=== PATIENT | female | born 1980 | race Caucasian/White ===

== ENCOUNTER 2019-08-01 17:10 | Emergency (ER) | payer OTHER ==
[~2019-08-01] VITALS: Ht 180.3 cm; Wt 116.0 kg
[2019-08-01] MEDS ORDERED: docusate sodium 100mg/10ml UD cup PO STA (18:32)
[2019-08-01] MEDS ORDERED: polyethylene glycol 3350 17gm powd pack PO STA (18:32)
[2019-08-01] MEDS ORDERED: NA P133E4 RC (18:52)
[2019-08-01] MEDS ORDERED: POLY17PO10 PO (19:24)
--- NOTE | 2019-08-01 20:00 | NUR ---
joe monroy in room and discussed results of CED
[2019-08-01 20:17] VITALS: BP 122/83
== END 2019-08-01 20:05 | disposition home or self-care (01) ==
LOC: ER 17:11
DX: K59.00 Constipation, unspecified (principal); Z88.0 Allergy status to penicillin; Z79.899 Other long term (current) drug therapy
CPT/HCPCS: 74018; 99284

== ENCOUNTER 2019-10-29 08:38 | Outpatient (CLI) | payer OTHER ==
[2019-10-29 09:34] LABS: BASOPHILS % (AUTO) 0.7 % (0-1); EOSINOPHILS # (AUTO) 0.2 X10'3 (0-0.9); EOSINOPHILS % (AUTO) 3.3 % (0-6); HEMATOCRIT 41.4 % (35.0-45.0); LYMPHOCYTES # (AUTO) 2.4 X10'3 (1.1-4.8); LYMPHOCYTES % (AUTO) 43.4 % (21-51); MEAN CORPUSCULAR HEMOGLOBIN 26.4 PG (27.0-31.0); MEAN CORPUSCULAR HGB CONC 33.8 g/dL (33.0-36.5); MEAN CORPUSCULAR VOLUME 77.9 FL (78-98); MEAN PLATELET VOLUME 7.4 FL (7.4-10.4); MONOCYTES # (AUTO) 0.3 X10'3 (0-0.9); MONOCYTES % (AUTO) 5.9 % (2-12); NEUTROPHILS # (AUTO) 2.6 X10'3 (1.8-7.7); NEUTROPHILS % (AUTO) 46.7 % (42-75); PLATELET COUNT 237 X10'3 (140-440); RED BLOOD COUNT 5.31 X10'6 (4.20-5.60); RED CELL DISTRIBUTION WIDTH 14.4 % (11.5-14.5); WHITE BLOOD COUNT 5.5 X10'3 (4.5-11.0)
[2019-10-29 10:01] LABS: ALANINE AMINOTRANSFERASE 18 U/L (12-78); ALBUMIN 3.7 G/DL (3.4-5.0); ALBUMIN/GLOBULIN RATIO 1.1 (1.1-1.5); ALKALINE PHOSPHATASE 56 IU/L (46-116); ANION GAP 7 (8-16); ASPARTATE AMINO TRANSFERASE 19 U/L (10-37); BILIRUBIN,TOTAL 0.4 MG/DL (0.1-1.0); BLOOD UREA NITROGEN 14 MG/DL (7-18); BUN/CREATININE RATIO 17.5 (6.6-38.0); CALCIUM 8.7 MG/DL (8.5-10.1); CHLORIDE 104 MMOL/L (99-107); CHOL/HDL RATIO 3.4 (0.00-4.99); CHOLESTEROL 162 MG/DL (0-200); GLUCOSE 92 MG/DL (70-104); HDL CHOLESTEROL 47 MG/DL (35-60); LDL CHOLESTEROL 85 MG/DL (50-100); POTASSIUM 3.9 MMOL/L (3.5-5.1); SODIUM 139 MMOL/L (135-145); TOTAL CARBON DIOXIDE 28.2 MMOL/L (24-32); TRIGLYCERIDES 143 MG/DL (20-135); eGFR 79 ML/MIN
== END 2019-10-29 23:59 | disposition home or self-care (01) ==
LOC: RAD 08:38
PROVIDERS: ATTEND Obstetrics & Gynecology
DX: N93.9 Abnormal uterine and vaginal bleeding, unspecified (principal)
CPT/HCPCS: 36415; 76830; 76856; 80053; 80061; 82306; 84439; 84443; 85025

== ENCOUNTER 2020-01-15 07:18 | Day surgery (SDC) | payer OTHER ==
[2020-01-15] VITALS (8 sets, daily range): BP systolic 116–138; BP diastolic 48–86
[~2020-01-15] VITALS: Ht 180.3 cm; Wt 119.3 kg
[~2020-01-15 07:18] MED LIST: GENTAMICIN IV ONE; NORE-223 PO; NORMAL SALINE IV ONE; clindamycin-Cleocin 900mg/D5W 50 ML IV ONE; famotidine 20mg tablet PO ONE; ringers solution, lacted 1,000 ML IV SCH
[2020-01-15 08:01] LABS: CLARITY,URINE CLEAR (Clear); COLOR,URINE YELLOW (Yellow); GLUCOSE, URINE NEGATIVE (Neg); KETONES,URINE NEGATIVE (Neg); LEUKOCYTE ESTERASE ,URINE TRACE (Neg); NITRITES, URINE NEGATIVE (Neg); OCCULT BLOOD,URINE LARGE (Neg); PROTEIN,URINE NEGATIVE (Neg); UROBILINOGEN,URINE 0.2 E.U/dL (0.2-1.0)
[2020-01-15 08:02] LABS: UA COLLECTION TYPE NON-SPECIFIED
[2020-01-15 08:04] LABS: BASOPHILS % (AUTO) 0.6 % (0-1); EOSINOPHILS # (AUTO) 0.2 X10'3 (0-0.9); EOSINOPHILS % (AUTO) 3.5 % (0-6); LYMPHOCYTES # (AUTO) 2.1 X10'3 (1.1-4.8); LYMPHOCYTES % (AUTO) 43.6 % (21-51); MEAN CORPUSCULAR HEMOGLOBIN 26.2 PG (27.0-31.0); MEAN CORPUSCULAR HGB CONC 33.1 g/dL (33.0-36.5); MEAN CORPUSCULAR VOLUME 78.9 FL (78-98); MEAN PLATELET VOLUME 7.2 FL (7.4-10.4); MONOCYTES # (AUTO) 0.3 X10'3 (0-0.9); MONOCYTES % (AUTO) 5.4 % (2-12); NEUTROPHILS # (AUTO) 2.2 X10'3 (1.8-7.7); NEUTROPHILS % (AUTO) 46.9 % (42-75); PRE OP HEMATOCRIT 42.6 % (35.0-45.0); PRE OP HEMOGLOBIN 14.1 g/dL (12.0-16.0); PRE OP PLATELET COUNT 227 X10'3 (140-440); RED BLOOD COUNT 5.39 X10'6 (4.20-5.60); RED CELL DISTRIBUTION WIDTH 14.5 % (11.5-14.5)
[2020-01-15] MEDS ORDERED: morphine 4 MG/ML inj SYRINge IV PRN (08:05)
[2020-01-15] MEDS ORDERED: fentaNYL/PF 50MCG/1 ML 2ML syringe IV PRN ×2 (08:05)
[2020-01-15] MEDS ORDERED: morphine 2 MG/ML inj. syringe IV PRN (08:05)
[2020-01-15] MEDS ORDERED: hydrALAZINE 20mg/ml inj. IV PRN (08:05)
[2020-01-15] MEDS ORDERED: labetalol 20mg/4ml (5mg/ml) syringe IV PRN (08:05)
[2020-01-15] MEDS ORDERED: ondansetron/PF 4mg/2ml inj IV PRN (08:05)
[2020-01-15] MEDS ORDERED: ringers solution, lacted 1,000 ML IV SCH (08:05)
[2020-01-15 08:12] LABS: SQUAMOUS EPITHELIAL CELL,UR MODERATE /LPF (FEW)
[2020-01-15 08:13] LABS: BACTERIA,URINE 1+ /HPF (Neg)
[2020-01-15 08:21] LABS: PRE OP PROTIME 10.2 SECONDS (9.0-12.0)
[2020-01-15 08:44] LABS: URINE HCG NEGATIVE (NEG)
[2020-01-15 08:48] LABS: ALBUMIN 3.2 G/DL (3.4-5.0); ALBUMIN/GLOBULIN RATIO 0.9 (1.1-1.5); ALKALINE PHOSPHATASE 57 IU/L (46-116); BLOOD UREA NITROGEN 12 MG/DL (7-18); BUN/CREATININE RATIO 13.8 (6.6-38.0); CALCIUM 8.4 MG/DL (8.5-10.1); CHLORIDE 110 MMOL/L (99-107); CREATININE 0.87 MG/DL (0.40-0.90); PRE OP ALT 18 U/L (30-65); PRE OP ANION GAP 9 (8-16); PRE OP AST 17 U/L (10-37); PRE OP BILIRUB, TOTAL 0.3 MG/DL (0.0-1.0); PRE OP GLUCOSE 101 MG/DL (70-104); PRE OP POTASSIUM 4.3 MMOL/L (3.4-5.1); PRE OP SODIUM 140 MMOL/L (135-145); TOTAL CARBON DIOXIDE 21.5 MMOL/L (24-32); TOTAL PROTEIN 6.8 G/DL (6.4-8.2); eGFR 72 ML/MIN
[2020-01-15] MEDS ORDERED: midazolam 2 mg/2 ml injection ONE (11:47)
[2020-01-15] MEDS ORDERED: fentaNYL/PF 50MCG/1 ML 2ML syringe ONE (11:47)
[2020-01-15] MEDS ORDERED: LIDOcaine 2% (20mg/ml) 5ml vial ONE (11:53)
[2020-01-15] MEDS ORDERED: ondansetron/PF 4mg/2ml inj ONE (11:53)
[2020-01-15] MEDS ORDERED: propofol inj 20 ML IV ONE (11:53)
[2020-01-15] MEDS ORDERED: ketorolac trometh. 30mg/ml inj. ONE (12:06)
[2020-01-15] MEDS ORDERED: morphine 10mg/ml inj. ONE (12:23)
--- NOTE | 2020-01-15 12:34 | NUR ---
Received from OR via [facility], accompanied by Anesthesiologist DR ALARCON and report given by Anesthesiolgist. AWAKE. VSS. DENIES PAIN. DEXTER PAD CDI. IV RIGHT HAND #20 PATENT WITH LR @ 100MLS/HR. ABD SOFT/NONDISTENDED
--- NOTE | 2020-01-15 13:34 | NUR ---
VSS. DENIES NAUSEA. STATES MILD ABD "CRAMPING", DECLINED NARCOTIC-STATES WILL TAKE MOTRIN AT HOME (OKAY'D BY ). NO VAGINAL DRAINAGE PRESENT. DC INSTRUCTIONS REVIEWED WITH PT WHO VERBALIZED UNDERSTANDING. IV DC'D WITH CANNULA INTACT AND DSG APPLIED. AMB TO BR, VOID X1. D/C VIA WC WITH PURSE AND ALL PERSONAL BELONGINGS PRESENT TO PVT AUTO WITH BF TO RECEIVE.
== END 2020-01-15 13:34 | disposition home or self-care (01) ==
LOC: PAS 07:18
PROVIDERS: ATTEND Obstetrics & Gynecology
DX: N93.9 Abnormal uterine and vaginal bleeding, unspecified (principal); Z88.0 Allergy status to penicillin; Z98.890 Other specified postprocedural states; Z11.59 Encounter for screening for other viral diseases
CPT/HCPCS: 36415; 58563; 80053; 81001; 81025; 85025; 85610; 85730; 86885; 86900; 86901; 87088; 87635; A4264; J1580; J1885; J2001; J2250; J2270; J2405; J2704; J3010; J7030; A4355; A4618; J3490; J7120

== ENCOUNTER 2020-05-30 08:35 | Emergency (ER) | payer BC, OTHER ==
[~2020-05-30] VITALS: Ht 180.3 cm; Wt 120.0 kg
[~2020-05-30 08:35] MED LIST changes: -GENTAMICIN IV ONE; -NORMAL SALINE IV ONE; -clindamycin-Cleocin 900mg/D5W 50 ML IV ONE; -famotidine 20mg tablet PO ONE; -ringers solution, lacted 1,000 ML IV SCH
[2020-05-30 08:49] VITALS: BP 128/96
[2020-05-30] MEDS ORDERED: BENZ-16 PO (09:14)
== END 2020-05-30 10:05 | disposition home or self-care (01) ==
LOC: ER 08:36 → EEVIPCON 08:36 → ER 10:05
DX: J06.9 Acute upper respiratory infection, unspecified (principal); Z20.828 Contact with and (suspected) exposure to other viral communicable diseases; Z88.0 Allergy status to penicillin; Z79.899 Other long term (current) drug therapy
CPT/HCPCS: 36415; 99283

== ENCOUNTER 2020-08-30 09:33 | Emergency (ER) | payer BC ==
[~2020-08-30] VITALS: Ht 180.3 cm; Wt 130.0 kg
[2020-08-30 09:36] VITALS: BP 126/80
[2020-08-30] MEDS ORDERED: MECL-184 PO (10:44)
[2020-08-30] MEDS ORDERED: meclizine 12.5mg tablet PO ONE (10:45)
== END 2020-08-30 11:04 | disposition home or self-care (01) ==
LOC: ER 09:34
DX: H81.10 Benign paroxysmal vertigo, unspecified ear (principal); Z88.0 Allergy status to penicillin; Z79.899 Other long term (current) drug therapy
CPT/HCPCS: 99282; J8597; 99283

== ENCOUNTER 2021-10-30 10:27 | Outpatient (CLI) | payer BC ==
[~2021-10-30 10:27] MED LIST changes: +MECL-231 PO
== END 2021-10-30 23:59 | disposition home or self-care (01) ==
LOC: RAD 10:27
PROVIDERS: ATTEND Physician Assistant
DX: S83.282A Other tear of lateral meniscus, current injury, left knee, initial encounter (principal); M25.862 Other specified joint disorders, left knee; X58.XXXA Exposure to other specified factors, initial encounter; Y93.89 Activity, other specified; Y92.89 Other specified places as the place of occurrence of the external cause; Y99.8 Other external cause status
CPT/HCPCS: 73721

== ENCOUNTER 2022-08-16 20:30 | Emergency (ER) | payer BC, OTHER ==
[~2022-08-16] VITALS: Ht 180.3 cm; Wt 129.1 kg
[2022-08-16 21:15] VITALS: BP 117/78
[2022-08-16 21:51] LABS: BASOPHILS # (AUTO) 0.1 X10'3 (0-0.2); BASOPHILS % (AUTO) 0.7 % (0-1); EOSINOPHILS # (AUTO) 0.2 X10'3 (0-0.9); HEMATOCRIT 42.2 % (35.0-45.0); LYMPHOCYTES # (AUTO) 2.7 X10'3 (1.1-4.8); LYMPHOCYTES % (AUTO) 33.2 % (21-51); MEAN CORPUSCULAR HEMOGLOBIN 26.3 PG (27.0-31.0); MEAN CORPUSCULAR HGB CONC 33.2 g/dL (33.0-36.5); MEAN CORPUSCULAR VOLUME 79.3 FL (78-98); MEAN PLATELET VOLUME 6.7 FL (7.4-10.4); MONOCYTES # (AUTO) 0.6 X10'3 (0-0.9); MONOCYTES % (AUTO) 7.1 % (2-12); NEUTROPHILS # (AUTO) 4.7 X10'3 (1.8-7.7); PLATELET COUNT 195 X10'3 (140-440); RED BLOOD COUNT 5.32 X10'6 (4.20-5.60); RED CELL DISTRIBUTION WIDTH 14.8 % (11.5-14.5); WHITE BLOOD COUNT 8.2 X10'3 (4.5-11.0)
[2022-08-16 22:06] LABS: ALANINE AMINOTRANSFERASE 30 U/L (12-78); ALBUMIN 3.6 G/DL (3.4-5.0); ALBUMIN/GLOBULIN RATIO 0.9 (1.1-1.5); ALKALINE PHOSPHATASE 74 IU/L (46-116); ANION GAP 10 (8-16); ASPARTATE AMINO TRANSFERASE 22 U/L (10-37); BILIRUBIN,TOTAL 0.4 MG/DL (0.1-1.0); BLOOD UREA NITROGEN 11 MG/DL (7-18); BUN/CREATININE RATIO 13.9 (6.6-38.0); CALCIUM 8.3 MG/DL (8.5-10.1); CHLORIDE 105 MMOL/L (99-107); CREATININE 0.79 MG/DL (0.40-0.90); GLUCOSE 117 MG/DL (70-104); LIPASE 106 U/L (73-393); SODIUM 142 MMOL/L (135-145); TOTAL CARBON DIOXIDE 26.6 MMOL/L (24-32); TOTAL PROTEIN 7.4 G/DL (6.4-8.2); eGFR 79 ML/MIN
[2022-08-16 22:19] LABS: CLARITY,URINE SLIGHTLY CLOUDY (Clear); COLOR,URINE YELLOW (Yellow); GLUCOSE, URINE NEGATIVE (Neg); KETONES,URINE TRACE mg/dl (Neg); LEUKOCYTE ESTERASE ,URINE NEGATIVE (Neg); NITRITES, URINE NEGATIVE (Neg); OCCULT BLOOD,URINE NEGATIVE (Neg); PH,URINE 5.5 (4.8-8.0); PROTEIN,URINE NEGATIVE (Neg); UROBILINOGEN,URINE 0.2 E.U/dL (0.2-1.0)
[2022-08-16 22:20] LABS: URINE HCG NEGATIVE (NEG)
[2022-08-16 22:26] LABS: UA COLLECTION TYPE CLN CATCH MIDSTREAM
[2022-08-16 22:29] LABS: MUCUS STRANDS FEW /LPF (Neg); SQUAMOUS EPITHELIAL CELL,UR FEW /LPF (FEW); TRANSITIONAL EPI CELLS,URINE FEW /HPF
[2022-08-16 22:35] LABS: BACTERIA,URINE FEW /HPF (Neg); RBC,URINE 0-2 /HPF (0-2); WBC,URINE 0-4 /HPF (0-4)
[2022-08-16 22:36] LABS: AMORPHOUS URATES 1+
== END 2022-08-17 05:10 | disposition left against medical advice (07) ==
LOC: ER 20:31
DX: R10.9 Unspecified abdominal pain (principal); Z53.21 Procedure and treatment not carried out due to patient leaving prior to being seen by health care provider
CPT/HCPCS: 36415; 80053; 81001; 81025; 83690; 85025; 87088